=== PATIENT | female | born 1975 | race Caucasian/White ===

== ENCOUNTER → 2016-12-08 | Outpatient (CLI) | payer BC ==
[~2016-12-08] MED LIST: CHOL400T PO; FOLIC ACID PO; MTR600X PO; OXYC-57 PO; PRENTAB26 PO; RANITDINE PO
[2016-12-08 12:55] LABS: GTGD 50 Grams
[2016-12-10 15:05] LABS: AFP CONCENTRATION 25.4 NG/ML; AFP MULTIPLE OF MEDIAN 0.96; AFPTS GESTATIONAL AGE 16.1 WEEKS; AFPTS INSULIN DEP DIABETIC? NO; AFPTS MATERNAL WT 212 LBS; ALPHA-FETOPROTEIN RACE CAUCASIAN=W; HISTORY OF NTD NO; REPEAT SAMPLE? NO
== END | disposition home or self-care (01) ==
LOC: C.LAB1850 10:20
PROVIDERS: ATTEND Obstetrics & Gynecology
DX: O09.522 Supervision of elderly multigravida, second trimester (principal)

== ENCOUNTER → 2017-03-13 | Outpatient (CLI) | payer BC ==
[2017-03-13 15:34] LABS: HEMATOCRIT 34.9 % (37-47)
[2017-03-13 15:41] LABS: URINE APPEARANCE CLEAR (CLEAR); URINE BILIRUBIN NEG (NEG); URINE COLOR YELLOW; URINE EPITHELIAL CELL AUTO >30 /lpf (0-5); URINE NITRITE NEG (NEG); URINE SPECIFIC GRAVITY 1.015 (1.000-1.030); UROBILINOGEN NEG (NEG)
[2017-03-13 15:50] LABS: MANUAL MICROSCOPIC REQUIRED? NO; REVIEW REQ? NO
[2017-03-13 19:09] LABS: GTGD 50 Grams
== END | disposition home or self-care (01) ==
LOC: C.LAB1850 13:42
PROVIDERS: ATTEND Obstetrics & Gynecology
DX: O09.523 Supervision of elderly multigravida, third trimester (principal)

== ENCOUNTER → 2017-05-01 | Outpatient (CLI) | payer BC | END | disposition home or self-care (01) | LOC: C.LABSPEC 17:29 | PROVIDERS: ATTEND Obstetrics & Gynecology | DX: O09.213 Supervision of pregnancy with history of pre-term labor, third trimester (principal) ==

== ENCOUNTER 2017-05-18 05:33 | Inpatient (IN) | payer BC ==
--- NOTE | 2017-05-13 10:53 | PAT Medication Instructions ---
Service Date May 13, 2017. Current Home Medication List Cholecalciferol (Vitamin D), 400 UNITS PO QAM Multivit/Min/Iron/Fol Ac/Pren ( Vitamin), 1 TAB PO QAM [Folic Acid], 1 TAB PO QAM [Ranitdine], 1 TAB PO PRN Medication Instructions For Your Scheduled Surgery - Hold the following medications the morning of surgery: Cholecalciferol (Vitamin D), 400 UNITS PO QAM Multivit/Min/Iron/Fol Ac/Pren ( Vitamin), 1 TAB PO QAM [Folic Acid], 1 TAB PO QAM [Ranitdine], 1 TAB PO PRN - Take the following medications as scheduled the night before surgery: [Ranitdine], 1 TAB PO PRN (if needed) If you have any questions please call us at [phone] or [phone] or [phone]
[2017-05-13 11:20] LABS: BASO % 0.1 %; BASO ABS # 0.01 K/uL (0-0.2); COMPLETE YES; EOS % 0.8 %; HEMATOCRIT 38.1 % (37-47); IG% 0.6 %; LYMPH % 20.3 %; MEAN CELL VOLUME 88.6 fL (80-100); MEAN CORPUSCULAR HEMOGLOBIN 28.8 pg (25-34); MEAN CORPUSCULAR HGB CONC 32.5 g/dl (32-36); MEAN PLATELET VOLUME 9.9 fL (7.4-10.4); NEUT % 72.2 %; PLATELET COUNT 185 K/uL (130-400); WHITE BLOOD COUNT 10.36 K/uL (4.8-10.8)
[2017-05-18] VITALS (15 sets, daily range): BP systolic 98–133; BP diastolic 60–76; PULSE 71–93; TEMP 36.5–36.9; O2SAT 95–100; Ht 165.1 cm; Wt 106.1 kg
[~2017-05-18] VITALS: Ht 165.1 cm; Wt 106.1 kg
[~2017-05-18 05:33] MED LIST changes: -MTR600X PO; -OXYC-57 PO
[2017-05-18] MEDS ORDERED: CITRIC ACID/SODIUM CITRATE 15 ML UDC PO SCH (06:00)
[2017-05-18] MEDS ORDERED: CEFAZOLIN IV 3,000 MG in DEXTROSE 5% 50ML IV SCH (06:00)
[2017-05-18 06:07] LABS: BASO % 0.1 %; BASO ABS # 0.01 K/uL (0-0.2); EOS % 1.5 %; IG% 0.4 %; LYMPH % 25.9 %; LYMPH ABS # 2.49 K/uL (1.2-3.4); MEAN CELL VOLUME 88.5 fL (80-100); MEAN CORPUSCULAR HEMOGLOBIN 29.7 pg (25-34); MEAN PLATELET VOLUME 9.6 fL (7.4-10.4); MONO % 5.1 %; PLATELET COUNT 170 K/uL (130-400); RED BLOOD COUNT 4.07 M/uL (4.2-5.4); WHITE BLOOD COUNT 9.63 K/uL (4.8-10.8)
[2017-05-18] MEDS: LACTATED RINGER'S 1000ML 1,000 ML IV SCH ×2 (06:18→07:15)
[2017-05-18 06:19] LABS: COMPLETE YES; MEAN CORPUSCULAR HGB CONC 33.6 g/dl (32-36)
--- NOTE | 2017-05-18 07:12 | History & Physical Bridge Note ---
H&P Re-Evaluation Bridge Note: I have examined the patient, reviewed the History & Physical and in the interval since the performance of the History & Physical I have noted the following changes of clinical significance: No changes noted
[2017-05-18] MEDS ORDERED: LACTATED RINGER'S 1000ML 500 ML IV PRN (07:16)
[2017-05-18] MEDS ORDERED: SODIUM CHLORIDE 0.9% 1000ML 1,000 ML IV PRN (07:16)
[2017-05-18] MEDS ORDERED: NALOXONE HCL INJ 1 MG in SODIUM CHLORIDE 0.9% 1000ML 1,000 ML IV PRN (07:16)
[2017-05-18] MEDS ORDERED: NALOXONE HCL INJ 0.08 MG in SYRINGE 1.8 ML IV PRN (07:16)
[2017-05-18] MEDS ORDERED: FENTANYL CITRATE INJ 50 MCG/1 ML 2 ML VIAL ONE (07:23)
[2017-05-18] MEDS ORDERED: MoRPHine SULFATE PF 1 MG/ML 10 ML AMP/VIAL ONE (07:23)
[2017-05-18] MEDS ORDERED: MoRPHine SULFATE PF 1 MG/ML 10 ML AMP/VIAL EPI PRN (07:30)
[2017-05-18] MEDS ORDERED: DiphenhydrAMINE HCL 50 MG/ML VIAL IV PRN ×2 (07:30)
[2017-05-18] MEDS ORDERED: MEPERIDINE HCL 25 MG/ML CARP IV PRN (07:30)
[2017-05-18] MEDS ORDERED: NALOXONE HCL 0.4 MG/1 ML VIAL/CARP IV PRN (07:30)
[2017-05-18] MEDS ORDERED: KETOROLAC TROMETHAMINE 30 MG/ML VIAL IV. PRN (07:30)
[2017-05-18] MEDS ORDERED: NO NARCOTICS OR SEDATIVES SCH (07:30)
[2017-05-18] MEDS ORDERED: PROMETHAZINE HCL INJ 6.25 MG in SODIUM CHLORIDE 0.9% 50ML 50 ML IV PRN (07:30)
[2017-05-18] MEDS ORDERED: EpHEDrine SULFATE INJ 50 MG/ML AMP IV PRN (07:30)
[2017-05-18] MEDS ORDERED: ONDANSETRON INJ 2 MG/ML 2 ML VIAL IV PRN (07:30)
[2017-05-18] MEDS ORDERED: MoRPHine SULFATE 2 MG/ML CARP IV PRN (07:30)
[2017-05-18] MEDS ORDERED: NALBUPHINE HCL INJ 10 MG/ML AMP IV PRN (07:30)
[2017-05-18] MEDS ORDERED: ONDANSETRON INJ 2 MG/ML 2 ML VIAL ONE (08:00)
[2017-05-18] MEDS ORDERED: OXYTOCIN INJ 10 UNITS/ML VIAL ONE (08:00)
[2017-05-18] MEDS ORDERED: PHENYLEPHRINE 100MCG/ML 5ML SYR ONE (08:00)
[2017-05-18] MEDS ORDERED: KETOROLAC TROMETHAMINE 30 MG/ML VIAL ONE (08:00)
[2017-05-18] MEDS ORDERED: EpHEDrine SULFATE 50MG/5ML SYR ONE (08:00)
[2017-05-18] MEDS ORDERED: LACTATED RINGER'S 1000ML 1,000 ML IV SCH (08:36)
--- NOTE | 2017-05-18 08:42 | [facility] Post Operative Brief Note ---
Immediate Operative Summary Operative Date May 18, 2017. Pre-Operative Diagnosis Previous Caesarean Section; Pt desires Repeat Caesarean Section. Post-Operative Diagnosis Same as Pre-op Procedure(s) Performed Live Male Infant @ [address] Donis Crystal Grinder Surgeon(s) Dr. Jack Estimated Blood Loss 600 CC Findings Patient was taken back to the section room given a spinal anesthetic [place] catheter inserted by nursing into her bladder and prepped and draped in supine position with a leftward tilt. 3 g Ancef was given preoperatively timeout performed pickups with teeth used to test the incision block found to be adequate. Previous section incision was used which was a Pfannenstiel cutting with scalpel down to something is that through the fascia in the midline fascia was then cut laterally with the curved Will scissors. Fascia was released superiorly and inferiorly from the rectus muscles with the curved Will's peritoneal cavity was then entered bluntly in a superior location opening enlarged to allow exposure. Bladder retractor was then placed Metzenbaums used to dissect away the bladder flap. Bladder retractor repositioned. Uterus incised in a low transverse incision entry into the uterus was done bluntly with a hemostat incision then opened bluntly by the curb machine operator's finger in the usual fashion membranes ruptured baby in vertex position clear fluid baby 's head was flexed and then pressure on the abdomen resulted in delivery of the head mouth and nares were then suctioned and baby was delivered by gentle traction no excessive force used. Live vigorous male cord clamped and cut and cord blood obtained placenta removed uterus exteriorized IV Pitocin started very We ensured all placenta removed from the uterus with a moist lap and then closed the uterus in a running 0 Monocryl locked and then a second 0 Monocryl nonlocked layer. Hemostasis was excellent and the uterus tone was firm after suction irrigation of the cul-de-sac uterus is placed back in the peritoneal cavity and on inspection of the bladder flap after suction irrigation hemostasis was excellent. Rectus muscles reapproximated with 0 Vicryl's on fascia closed with 0 Vicryl subcutaneous continuous fat irrigated and closed with 3-0 Vicryl and skin closed with 4-0 subcuticular Monocryl and Steri-Stripped sponge and isthmic count correct and urine was clear at the end of the procedure Specimens Placenta (Hold) Cord Blood [place] Anesthesia Spinal Complication(s) None Disposition L&D
[2017-05-18] MEDS ORDERED: BENZOCAINE 20% AER SPR 82.5 GM CAN EXT PRN (08:45)
[2017-05-18] MEDS ORDERED: MAGNESIUM HYDROXIDE SUSP 30 ML UDC PO PRN (08:45)
[2017-05-18] MEDS ORDERED: HYDROCORTISONE ACETATE 25 MG SUPP PR PRN (08:45)
[2017-05-18] MEDS ORDERED: SUPERCREAM 0.870 % 15GM JAR EXT PRN (08:45)
[2017-05-18] MEDS ORDERED: LANOLIN OINT EXT PRN ×2 (08:45)
[2017-05-18] MEDS ORDERED: SENNA 8.6 MG TAB PO PRN (08:45)
--- NOTE | 2017-05-18 08:50 | Medical Student: [facility] ---
Immediate Operative Summary Operative Date May 18, 2017. Pre-Operative Diagnosis Term at 39+1 weeks GA Post-Operative Diagnosis See above. Procedure(s) Performed Low cervical transverse section (repeat section x1) resulting in delivery of a live male . Surgeon Kiara Donis MD Nursing Assistant Surgeon(s) Karen West MD Estimated Blood Loss 600cc Findings Delivery of a viable male at 0756. Normal appearing ovaries/Fallopian tubes bilaterally. Fluids (cc crystalloids) 1500cc Specimens Placenta Cord blood [place] to gravity Anesthesia Spinal Complication(s) None Disposition L&D
[2017-05-18] MEDS: SIMETHICONE 80 MG CHEW PO SCH ×3 (14:33→19:59)
[2017-05-18] MEDS: OXYTOCIN INJ 20 UNITS in LACTATED RINGER'S 1000ML 1,000 ML IV SCH ×2 (14:36→23:16)
--- NOTE | 2017-05-18 15:27 | Anesthesiology Progress Note ---
Anesthesia Post Op Note Date & Time May 18, 2017 at 15:27 Vital Signs Pain Intensity: 2.0 Vital Signs Past 12 Hours Date Time Temp Pulse Resp B/P (MAP) Pulse Ox O2 Delivery O2 Flow Rate FiO2 05/18/17 14:43 20 98 05/18/17 13:30 20 96 05/18/17 12:30 18 97 05/18/17 12:20 36.8 93 18 103/62 (76) 97 Room Air 05/18/17 11:30 18 98 05/18/17 11:10 36.7 71 18 133/76 (95) 97 Room Air Notes Mental Status: alert / awake / arousable, participated in evaluation Pt Amnestic to Procedure: Yes Nausea / Vomiting: adequately controlled Pain: adequately controlled Airway Patency, RR, SpO2: stable & adequate BP & HR: stable & adequate Hydration State: stable & adequate Anesthetic Complications: no major complications apparent
[2017-05-18] MEDS: DOCUSATE SODIUM 100 MG CAP PO SCH (19:56)
[2017-05-19] VITALS (7 sets, daily range): BP systolic 95–119; BP diastolic 56–78; PULSE 69–97; TEMP 36.4–36.8; O2SAT 96–98
[2017-05-19] MEDS: SIMETHICONE 80 MG CHEW PO SCH ×4 (01:14→19:55)
[2017-05-19] MEDS ORDERED: DC INTRASPINAL MORPHINE ONE (02:00)
[2017-05-19] MEDS ORDERED: MEPERIDINE HCL 50 MG/ML CARP IV PRN ×2 (02:01)
[2017-05-19] MEDS ORDERED: OXYCODONE/ACETAMINOPHEN 5-325 TAB PO PRN ×2 (02:01)
[2017-05-19] MEDS ORDERED: PROMETHAZINE HCL INJ 25 MG in SODIUM CHLORIDE 0.9% 50ML 50 ML IV PRN (02:01)
[2017-05-19] MEDS ORDERED: ZOLPIDEM TARTRATE 5 MG TAB PO PRN (02:01)
[2017-05-19] MEDS ORDERED: DiphenhydrAMINE HCL 50 MG/ML VIAL IV PRN (02:01)
[2017-05-19] MEDS ORDERED: ONDANSETRON INJ 2 MG/ML 2 ML VIAL IV PRN (02:01)
[2017-05-19] MEDS ORDERED: KETOROLAC TROMETHAMINE 30 MG/ML VIAL IV. PRN (02:01)
[2017-05-19 06:58] LABS: BASO % 0.1 %; BASO ABS # 0.01 K/uL (0-0.2); COMPLETE YES; EOS % 0.9 %; HEMATOCRIT 31.4 % (37-47); IG% 0.4 %; LYMPH % 15.4 %; LYMPH ABS # 1.88 K/uL (1.2-3.4); MEAN CORPUSCULAR HEMOGLOBIN 30.6 pg (25-34); MEAN CORPUSCULAR HGB CONC 34.4 g/dl (32-36); MEAN PLATELET VOLUME 9.7 fL (7.4-10.4); MONO % 5.3 %; NEUT % 77.9 %; PLATELET COUNT 170 K/uL (130-400); RED BLOOD COUNT 3.53 M/uL (4.2-5.4); WHITE BLOOD COUNT 12.17 K/uL (4.8-10.8)
--- NOTE | 2017-05-19 07:17 | OB/GYN Progress Note ---
NCQA SPECIALIST Progress Note Date of Service May 19, 2017. Subjective conversation w/ patient, conversation w/ family, physical exam, chart review, lab review Ambulation: ambulating normally Voiding: no voiding problems Passing Gas: Yes Diet Tolerance: Clear Liquids Lochia: Small Feeding Type: Breast Feeding Pain: Incisional site only, "sore" Review of Systems Constitutional: No fever, No chills Respiratory: No cough, No shortness of breath Cardiac: No chest pain Abdomen: + pain (incision site soreness), No nausea, No vomiting, No diarrhea Female : No dysuria Objective Vital Signs Date Time Temp Pulse Resp B/P (MAP) Pulse Ox O2 Delivery O2 Flow Rate FiO2 05/19/17 04:00 36.5 97 18 95/56 (69) 98 Room Air 05/19/17 02:15 18 96 05/19/17 01:15 16 98 05/19/17 00:15 18 97 05/18/17 23:15 18 96 05/18/17 23:15 36.5 89 18 100/64 (76) 96 Room Air 05/18/17 23:15 Room Air 05/18/17 22:30 18 95 05/18/17 21:30 16 98 05/18/17 20:30 18 95 05/18/17 19:40 36.9 82 16 107/65 (79) 96 Room Air 05/18/17 19:40 16 96 05/18/17 18:30 18 97 05/18/17 17:30 16 100 05/18/17 16:30 18 100 05/18/17 15:35 100 Room Air 05/18/17 15:35 18 100 05/18/17 15:35 36.6 72 18 98/60 (73) 100 Room Air 05/18/17 14:43 20 98 05/18/17 13:30 20 96 05/18/17 12:30 18 97 05/18/17 12:20 36.8 93 18 103/62 (76) 97 Room Air 05/18/17 11:30 18 98 05/18/17 11:10 36.7 71 18 133/76 (95) 97 Room Air Physical Exam General Appearance: WELL-APPEARING, WD/WN, NO APPARENT DISTRESS Respiratory/Chest: lungs clear, normal breath sounds, no respiratory distress Cardiovascular: regular rate, rhythm, no murmur Abdomen: normal bowel sounds, soft, + tenderness (Minimal midline low abd ttp) Fundus: Firm, Tender (minimal ttp) Incision Description: Clean, Dry & Intact (no incisional erythema or d/c) Laboratory Results Last 24 Hours Test 05/19/17 06:05 White Blood Count 12.17 K/uL Red Blood Count 3.53 M/uL Hemoglobin 10.8 g/dL Hematocrit 31.4 % Mean Corpuscular Volume 89.0 fL Mean Corpuscular Hemoglobin 30.6 pg Mean Corpuscular Hemoglobin Concent 34.4 g/dl Platelet Count 170 K/uL Mean Platelet Volume 9.7 fL Neutrophils (%) (Auto) 77.9 % Lymphocytes (%) (Auto) 15.4 % Monocytes (%) (Auto) 5.3 % Eosinophils (%) (Auto) 0.9 % Basophils (%) (Auto) 0.1 % Neutrophils # (Auto) 9.47 K/uL Lymphocytes # (Auto) 1.88 K/uL Monocytes # (Auto) 0.65 K/uL Eosinophils # (Auto) 0.11 K/uL Basophils # (Auto) 0.01 K/uL RDW Standard Deviation 46.4 fL RDW Coefficient of Variation 14.3 % Immature Granulocyte % (Auto) 0.4 % Immature Granulocyte # (Auto) 0.05 K/uL Assessment and Plan Post-Op Day Number: 1 Continue Routine Care: Resident Physician Supervision Note: I was present with Dr. Jacobs during the history and exam. I discussed the case with the resident and agree with the findings and plan as documented in the note. Any exceptions or clarifications are listed here: [None] Documented By: Karen Loaiza Willow 41F s/p scheduled , now PPD #1. - GBS negative. Blood type O pos. Rubella immune. - Vital signs reviewed and stable. - Pain controlled with minimal meds. - No leg swelling. No tenderness on calf palpation. - Encourage breast feeding. - Hemoglobin: 13.3 --> Today 10.8. Continue to monitor clinically. - Encourage ambulation. Continue routine post care. - Pt agreed with above plan, all current questions answered. Jerel Jacobs MD, PGY1 [employer] [place] Tracking Resident Involvement: Resident Care Provided Care Provided: OB Delivery (morning rounding)
[2017-05-19] MEDS: PRENATAL VITAMIN TAB PO SCH (08:13)
[2017-05-19] MEDS: DOCUSATE SODIUM 100 MG CAP PO SCH ×2 (08:13→19:55)
[2017-05-19] MEDS: IBUPROFEN 600 MG TAB PO PRN (15:32)
[2017-05-19] MEDS ORDERED: BISACODYL 5 MG TABEC PO ONE (22:00)
[2017-05-20] MEDS: IBUPROFEN 600 MG TAB PO PRN (06:07)
[2017-05-20] MEDS ORDERED: BISACODYL 10 MG SUPP PR PRN (07:00)
--- NOTE | 2017-05-20 07:01 | OB/GYN Progress Note ---
ACCESS SPEC Progress Note Date of Service May 20, 2017. Subjective conversation w/ patient, conversation w/ family, physical exam, chart review, lab review Ambulation: ambulating normally Voiding: no voiding problems Passing Gas: Yes (and (+) BM) Diet Tolerance: Regular Diet Lochia: Small Feeding Type: Breast Feeding Pain: says "sore everywhere" but denies focal pains Review of Systems Constitutional: No fever, No chills Respiratory: No cough, No shortness of breath Cardiac: No chest pain Abdomen: No pain, No nausea, No vomiting, No diarrhea Female : No dysuria Objective Vital Signs Date Time Temp Pulse Resp B/P (MAP) Pulse Ox O2 Delivery O2 Flow Rate FiO2 05/19/17 23:15 36.4 69 18 105/69 (81) 97 Room Air 05/19/17 23:15 97 Room Air 05/19/17 16:45 36.8 74 20 119/78 (92) 05/19/17 07:43 36.7 85 20 115/73 (87) 97 Room Air Physical Exam General Appearance: WELL-APPEARING, WD/WN, NO APPARENT DISTRESS Respiratory/Chest: lungs clear, normal breath sounds Cardiovascular: regular rate, rhythm, no murmur Abdomen: normal bowel sounds, non tender, soft Fundus: Firm Incision Description: Clean, Dry & Intact (no incision erythema or d/c, steristrips present) Extremities: normal range of motion, non-tender, no pedal edema, no calf tenderness Laboratory Results Last 24 Hours Test 05/20/17 06:00 Assessment and Plan Post-Op Day Number: 2 Continue Routine Care: 41yo s/p scheduled repeat , now PPD #2. - Blood type O pos. GBS negative. Rubella immune. - Vital signs reviewed and stable. - Pain controlled with ibuprofen. - No leg swelling or tenderness on calf palpation. Encourage ambulation. - Encourage breast feeding. - Hemoglobin: 12.1, 10.8. Bleeding has improved. Continue to monitor clinically. - Continue routine post delivery care. - Pt agreed with above plan, all current questions answered. Jerel Jacobs MD, PGY1 Reclamation Engineer Physician Supervision Note: I was present with Dr. Jacobs during the history and exam. I discussed the case with the resident and agree with the findings and plan as documented in the note. Any exceptions or clarifications are listed here: POD#2 doing well. Would like to go home today. Documented By: Kaykay Negron Resident Tracking Resident Involvement: Resident Care Provided Care Provided: OB Delivery (morning rounds)
[2017-05-20 07:12] LABS: HEMATOCRIT 32.2 % (37-47)
[2017-05-20 07:36] VITALS: BP 118/75; PULSE 70; TEMP 36.6; O2SAT 98
--- NOTE | 2017-05-20 07:50 | Discharge Instructions ---
Discharge Instructions Date of Service May 20, 2017. Admission Reason for Admission: Previous Section Discharge Discharge Diagnosis / Problem: Recovery from Discharge Goals Goal(s): Routine recovery after Medications Continue Dispensed Medications: supercream, dermaplast, tucks, lansinoh Activity Recommendations Activity Limitations: per Instructions/Follow-up section . Instructions / Follow-Up Instructions / Follow-Up ACTIVITY RECOMMENDATIONS: * Gradual return to full activity over the next 2-3 weeks. * No lifting - nothing heavier than baby over the next 2-3 weeks. * Do not engage in vigorous exercise, sexual activity or sports until cleared by your physician. * Do not drive or operate any motorized equipment until cleared by your physician. * You may shower/bathe daily. MEDICATIONS: For discomfort or pain, you may use Acetaminophen (Tylenol), Ibuprofen (Advil), or Naproxen (Aleve) following the package directions. For constipation you may use Colace following the package directions. BREAST CARE: If you are not breast feeding: * Wear a supportive bra 24 hours a day for one to two weeks. * Avoid stimulating your breasts and nipples as much as possible during the first few weeks after delivery. * When taking a shower, have the warm water hit your back, not breasts. * When your breasts feel full, apply ice packs. Usually three to four times a day helps ease the discomfort. * Take a mild pain medication (Tylenol / Motrin) when you are uncomfortable. If breast feeding: * Use breast milk to lubricate nipples. Lansinoh cream may be used for sore nipples. You do not need to remove cream prior to breast feeding. If using a different brand of cream, check the label for directions regarding removal of cream prior to nursing. * Wear a supportive bra. * If having problems with breasts or breast feeding, call a [employer] product consultant or your health care provider. SPECIAL CARE INSTRUCTIONS: When you are discharged from the hospital, it is important for you to follow the instructions listed below: * During the first week at home, you should be able to care for yourself and your baby. In addition, the usual light household activities are encouraged. * Limit your activities to the way you feel. Do not try to clean the house or move furniture. Be sensible. * If you actively engage in sports and have done so up until the time of your delivery, you may resume these activities as soon as you feel able. This may take up to one month or even longer. Use good judgment. * Continue to take your vitamins for at least six weeks after the of your baby. * Your diet need not be limited unless you were on a special diet before your delivery. Breast-feeding mothers need around 2500 calories per day and at least 64-80 ounces of fluid per day (8 to 10 glasses). * You should eat foods from the four major food groups. Crash diets or fad diets are to be avoided. Eating lean meats, fresh fruits and vegetables, low-fat dairy products, high fiber foods and a regular exercise program, will help you get back to your pre- weight without putting your health at risk. * Constipation is sometimes a problem after delivery. Take a mild laxative as needed. If breast feeding, Milk of Magnesia is acceptable to use. You may use a suppository or Fleets enema. * A daily shower or tub bath is suggested. Wash incision daily with warm soapy water and pat dry. It doesn't need to be covered unless drainage is present. * A bloody vaginal discharge will usually continue until around four weeks . A small amount of bleeding may continue for as long as six weeks. Vaginal discharge changes from the bright red bleeding after delivery to pink then brownish and finally yellowish-pink before becoming white and disappearing. * Bleeding may increase with activity. Your first period may come in 4-8 weeks. If you are breast feeding, your period may be delayed even longer. * [place] (sex) can begin whenever both you and your partner feel comfortable and do not have any form of genital infection. It is recommended that you wait at least six weeks for internal and external healing to occur. If you have questions, please talk to your health care practitioner. A condom should be used to prevent infection and . * Foreplay, gentle intercourse and lubrication is very important the first several times to prevent pain. A water-based lubricant such as K-Y jelly or Astroglide may be used. * If you have RH negative blood and your baby is RH positive, you will receive RHOGAM by injection prior to discharge. The nurse will give you a card to keep with you that has the date and place that you received RHOGAM after delivery. * During your care, you had a Rubella screen done to check for the presence of rubella antibodies in your blood. If your test was negative, you will receive a Rubella vaccine prior to discharge. This vaccine may cause a fever, soreness at the injection site and flu-like symptoms. If these symptoms persist, notify your health care practitioner. is not advised for one month after a Rubella vaccine. * Verbalizes understanding of car seat law as reviewed with patient nursing. * Car Seat hand-out given and reviewed with patient by nursing. * Shaken baby information reviewed with patient by nursing. Call you doctor if: * Heavy bleeding (saturating several pads an hour) or passing clots the size of your fist. * A fever >101 degrees F (38.3 degrees C) on two occasions four hours apart and /or chills. * Unusual pain in the pelvic or vaginal areas. * Call the doctor for any increased redness, drainage or swelling around the incision and any pain unrelieved by prescribed pain medication. * "Baby Blues" lasting longer than two weeks. If you have any questions or concerns, call your health care practitioner at . FOLLOW UP VISIT: * Please call the office at to schedule a 6 week examination. It is important you keep this appointment. It is important for you to make arrangements for either yearly or twice yearly check-ups thereafter. Current Hospital Diet Patient's current hospital diet: Regular OB Diet Discharge Diet Recommended Diet: Regular OB Diet Procedures Procedures Performed: Live Male @ 0756 Pending Studies Studies pending at discharge: no Medical Emergencies . Who to Call and When: Medical Emergencies: If at any time you feel your situation is an emergency, please call [phone] immediately. . Non-Emergent Contact Non-Emergency issues call your: Telecommunications Project Manager . . "Provider Documentation" section prepared by Jerel Jacobs. . VTE Core Measure Inpt VTE Proph given/why not?: SCD's
[2017-05-20] MEDS ORDERED: OXYC-57 PO (08:46)
--- NOTE | 2017-05-20 09:08 | Medical Student: [facility] ---
Med Student ROPE MAKING MACHINE OPERATOR Progress Nt Date of Service May 20, 2017. Subjective conversation w/ patient Ambulation: ambulating normally Voiding: no voiding problems Passing Gas: Yes (has also had a BM) Diet Tolerance: Regular Diet Lochia: Small (reports almost "virtually nonexistent" bleeding) Feeding Type: Breast Feeding Pain: reports more discomfort than pain, took a Motrin at roughly 0550 Notes: Pt was seen at bedside with . She is doing well and reports discomfort rather than pain. She has no complaints except for fatigue. She reports feeling sad. Review of Systems Constitutional: No fever, No chills, No sweats Respiratory: No cough, No shortness of breath, No dyspnea on exertion, No dyspnea at rest Cardiac: No chest pain Breast: No problem reported Abdomen: No pain, No nausea, No vomiting, No diarrhea, No constipation Female : No dysuria Objective Vital Signs Date Time Temp Pulse Resp B/P (MAP) Pulse Ox O2 Delivery O2 Flow Rate FiO2 05/19/17 23:15 36.4 69 18 105/69 (81) 97 Room Air 05/19/17 23:15 97 Room Air 05/19/17 16:45 36.8 74 20 119/78 (92) 05/19/17 07:43 36.7 85 20 115/73 (87) 97 Room Air Physical Exam General Appearance: WELL-APPEARING, WD/WN, NO APPARENT DISTRESS Respiratory/Chest: chest non-tender, lungs clear, normal breath sounds Cardiovascular: regular rate, rhythm, no JVD, no murmur Abdomen: non tender, soft Fundus: Firm, Relation to Umbilicus (four fingerwidths below umbilicus) Incision Description: Clean, Dry & Intact Extremities: non-tender, normal inspection, no pedal edema, no calf tenderness Laboratory Results Last 24 Hours Test 05/20/17 06:00 Assessment and Plan Post-Op Day Number: 2 Continue Routine Care: Rosita is a 41 year old female who is postop day 2 status post c/s. Labs: O+, rubella immune, GBS negative Hct/Hb: 36/12 --> 31.4/10.8 Continue routine care Vital signs review and stable; continue routine checks. Encourage further ambulation and . Pain control prn. Discuss signs of depression. Plan of care and discharge instructions were discussed with patient and all questions were answered.
[2017-05-20] MEDS: PRENATAL VITAMIN TAB PO SCH (09:22)
[2017-05-20] MEDS: SIMETHICONE 80 MG CHEW PO SCH (09:22)
[2017-05-20] MEDS: DOCUSATE SODIUM 100 MG CAP PO SCH (09:23)
--- NOTE | 2017-05-20 10:26 | Anesthesiology Progress Note ---
Anesthesia Post Op Note Date & Time May 20, 2017 at 10:25 Vital Signs Pain Intensity: 1.0 Vital Signs Past 12 Hours Date Time Temp Pulse Resp B/P (MAP) Pulse Ox O2 Delivery O2 Flow Rate FiO2 05/20/17 08:50 Room Air 05/20/17 07:36 36.6 70 18 118/75 (89) 98 Room Air 05/19/17 23:15 36.4 69 18 105/69 (81) 97 Room Air 05/19/17 23:15 97 Room Air Notes Mental Status: alert / awake / arousable, participated in evaluation Pt Amnestic to Procedure: Yes Nausea / Vomiting: adequately controlled Pain: adequately controlled Airway Patency, RR, SpO2: stable & adequate BP & HR: stable & adequate Hydration State: stable & adequate Neuraxial Anesthesia: was administered, sensory block resolved Anesthetic Complications: no major complications apparent
[2017-05-20 11:40] VITALS: BP_DIAS 75; PULSE 70; TEMP 36.6
--- NOTE | 2017-05-23 08:19 | Discharge Summary ---
Discharge Summary Date of Service May 23, 2017. Discharge Summary Patient had a section repeat on May 18 and was discharged May 20. Course in hospital was unremarkable by postop day #2 she met criteria At that time she was ambulating tolerating oral diet oral pain medications were effective for her she had no extremity pain she had minimal bleeding and no other concerns Physical exam her vital signs were stable she was afebrile incision was clean dry and intact extremity exam negative and uterus was nontender Impression and plan postop day #2 from given prescriptions for pain medication discharge instructions reviewed and patient told to follow up in the office
== END 2017-05-20 11:40 | disposition home or self-care (01) | DRG 765 ==
LOC: C.LD 05:33 → EDSTATUS 09:00 → C.OBG 11:20
PROVIDERS: ADMIT Obstetrics & Gynecology; ATTEND Obstetrics & Gynecology
PROC: 10D00Z1 Extraction of Products of Conception, Low, Open Approach (ICD-10-PCS; principal; 2017-05-18 07:30)
DX: O34.211 Maternal care for low transverse scar from previous cesarean delivery (principal); Z68.41 Body mass index [BMI] 40.0-44.9, adult; Z37.0 Single live birth; N85.8 Other specified noninflammatory disorders of uterus; O99.62 Diseases of the digestive system complicating childbirth; K21.9 Gastro-esophageal reflux disease without esophagitis; O99.02 Anemia complicating childbirth; D64.9 Anemia, unspecified; O99.214 Obesity complicating childbirth; E66.01 Morbid (severe) obesity due to excess calories; Z3A.39 39 weeks gestation of pregnancy; Z87.891 Personal history of nicotine dependence; Z79.899 Other long term (current) drug therapy